=== PATIENT | male | born 1955 | race African-American/Black ===

== ENCOUNTER 2019-06-12 16:06 | Inpatient (IN) | payer BC, OTHER ==
[~2019-06-12 16:06] MED LIST: chlordiazePOXIDE HCL 25 MG CAPSULE PO SCH
--- NOTE | 2019-06-12 16:30 | PDOC ---
History of Present Illness - General Chief Complaint: Alcohol intoxication Stated Complaint: WEEKNESS Time Seen by Provider: 06/12/19 16:16 - History of Present Illness Initial Comments: Mr. Moreira is a 63 y/o male with PMH significant for gastric sleeve, prostate CA s/p prostatectomy, muscular dystrophy, ETOH abuse, sent in from [facility] today for weakness and alcohol withdrawals. Reports that he was sober for 2 years until the of his mother last week. Reports that he started drinking again this past week. Last drink was yesterday and he had 3-4 bottles of alcohol (likely vodka). He presented to [facility] today for ETOH intoxication and was sent to [facility] for detox. At [facility], he stated that he felt weak and unstable and was about to fall. He reports headache, dizziness, nausea, and vomiting. No chest pain or shortness of breath. No abdominal pain. Reports intermittent visual hallucinations of cartoon characters. Past History - Past Medical History Allergies/Adverse Reactions: Allergies Allergy/AdvReac Type Severity Reaction Status Date / Time shrimp Allergy Severe Swelling Verified 06/12/19 12:56 Home Medications: Ambulatory Orders NK [No Known Home Medication] 06/12/19 Review of Systems - Review of Systems Comments:: GENERAL/CONSTITUTIONAL: No fever or chills. Reports weakness. HEAD, EYES, EARS, NOSE AND THROAT: No change in vision. No change in hearing. No sore throat._ CARDIOVASCULAR: No chest pain or shortness of breath_ RESPIRATORY: Denies cough, hemoptysis_ GASTROINTESTINAL: Reports nausea and vomiting. No diarrhea or constipation._ GENITOURINARY: No dysuria, frequency, or change in urination._ MUSCULOSKELETAL: No joint or muscle swelling or pain. No neck or back pain._ SKIN: No rash. NEUROLOGIC: Reports headache. No vertigo, loss of consciousness. Reports bilateral upper extremity tremors. PSYCH: Reports visual hallucinations. ENDOCRINE: No increased thirst. No abnormal weight change_ HEMATOLOGIC/LYMPHATIC: No anemia, easy bleeding, or history of blood clots._ ALLERGIC/IMMUNOLOGIC: No hives or skin allergy._ *Physical Exam - Physical Exam GENERAL: Awake, alert, and oriented to person/time, in no acute distress_ HEAD: No signs of trauma, normocephalic, atraumatic _ EYES: PERRLA, EOMI, sclera anicteric, conjunctiva clear_ ENT: Hearing grossly normal, nares patent, oropharynx clear without exudates. No uvular deviation. Moist mucosa_ NECK: Normal ROM, supple, no lymphadenopathy, JVD, or masses_ LUNGS: No distress, speaks in full sentences, clear to auscultation bilaterally _ HEART: Regular rate and rhythm, normal S1 and S2, no murmurs appreciated, peripheral pulses normal and equal bilaterally._ ABDOMEN: Soft, nontender, normoactive bowel sounds. No guarding, no rebound. No masses_ EXTREMITIES: Normal inspection, Normal range of motion, no edema. No clubbing or cyanosis_ NEUROLOGICAL: Cranial nerves II through XII grossly intact. Normal speech. Unsteady gait. Bilateral upper extremity tremors. Cerebellar testing intact. Heel to ibrahim testing intact. Sensation intact and equal bilaterally. SKIN: Warm, Dry, normal turgor, no rashes or lesions noted_ ED Treatment Course - LABORATORY CBC & Chemistry Diagram: 06/12/19 17:20 06/12/19 17:20 Medical Decision Making - Medical Decision Making 06/12/19 16:29 63M presenting for weakness, frequent falls, ETOH abuse, ETOH withdrawal. -cbc, cmp, tsh -ua, utox -etoh level, acetaminophen level, salicylate level -ekg, trop, cxr -ct head -librium, ativan 06/12/19 16:43 EKG shows NSR, 65 bpm, no ST elevation/depression, QTc 463. 06/12/19 18:15 UA shows signs of UTI. -ucx -ceftriaxone 06/12/19 18:25 CXR shows no acute intra-thoracic pathology. 06/12/19 18:52 CT head shows no acute intra-cranial pathology, no hemorrhage, no mass effect. Labs reviewed. Laboratory Tests 06/12/19 06/12/19 06/12/19 17:20 17:20 17:20 WBC 6.5 RBC 4.56 Hgb 10.1 L Hct 31.4 L MCV 68.8 L MCH 22.1 L MCHC 32.1 RDW 18.1 H Plt Count 134 MPV 8.8 Absolute Neuts (auto) 4.5 Neutrophils % 68.7 Lymphocytes % 21.2 Monocytes % 9.5 Eosinophils % 0.1 Basophils % 0.5 Nucleated RBC % 0 PT with INR INR PTT (Actin FS) Sodium 133 L Potassium 4.2 Chloride 92 L Carbon Dioxide 32 Anion Gap 8 BUN 8.6 Creatinine 0.4 L Est GFR (CKD-EPI)AfAm 146.51 Est GFR (CKD-EPI)NonAf 126.41 Random Glucose 87 Calcium 8.7 Total Bilirubin 1.6 H AST 74 H ALT 56 Alkaline Phosphatase 94 Creatine Kinase 403 H Creatine Kinase Index 1.3 CK-MB (CK-2) 5.4 H Troponin I < 0.02 Total Protein 7.0 Albumin 3.1 L TSH 1.47 Urine Color Urine Appearance Urine pH Ur Specific [place] Urine Protein Urine Glucose (UA) Urine Ketones Urine Blood Urine Nitrite Urine Bilirubin Urine Urobilinogen Ur Leukocyte Esterase Urine WBC (Auto) Urine RBC (Auto) Urine Casts (Auto) U Epithel Cells (Auto) U Sm Round Cell (Auto) Salicylates < 2.0 L Opiates Screen Methadone Screen Acetaminophen --noresult-- Barbiturate Screen Phencyclidine Screen Ur Amphetamines Screen MDMA (Ecstasy) Screen Benzodiazepines Screen Cocaine Screen U Marijuana (THC) Screen Alcohol, Quantitative < 3 06/12/19 06/12/19 06/12/19 17:20 17:20 17:20 WBC RBC Hgb Hct MCV MCH MCHC RDW Plt Count MPV Absolute Neuts (auto) Neutrophils % Lymphocytes % Monocytes % Eosinophils % Basophils % Nucleated RBC % PT with INR 13.50 H INR 1.14 H PTT (Actin FS) 26.6 Sodium Potassium Chloride Carbon Dioxide Anion Gap BUN Creatinine Est GFR (CKD-EPI)AfAm Est GFR (CKD-EPI)NonAf Random Glucose Calcium Total Bilirubin AST ALT Alkaline Phosphatase Creatine Kinase Creatine Kinase Index CK-MB (CK-2) Troponin I Total Protein Albumin TSH Urine Color Dk yellow Urine Appearance Cloudy Urine pH >= 9.0 H Ur Specific [place] 1.023 Urine Protein 1+ H Urine Glucose (UA) Trace Urine Ketones Negative Urine Blood Negative Urine Nitrite Positive H Urine Bilirubin Negative Urine Urobilinogen 4.0 e.u/dl Ur Leukocyte Esterase 1+ H Urine WBC (Auto) 12 Urine RBC (Auto) 3 Urine Casts (Auto) 9 U Epithel Cells (Auto) 4.7 U Sm Round Cell (Auto) none Salicylates Opiates Screen Negative Methadone Screen Negative Acetaminophen Barbiturate Screen Negative Phencyclidine Screen Negative Ur Amphetamines Screen Negative MDMA (Ecstasy) Screen Negative Benzodiazepines Screen Negative Cocaine Screen Negative U Marijuana (THC) Screen Negative Alcohol, Quantitative 06/12/19 19:15 D/w Dr. Reilly who accepts the patient for admission. Discharge - Discharge Information Problems reviewed: Yes Clinical Impression/Diagnosis: Alcohol withdrawal Qualifiers: Complication of substance-induced condition: with perceptual disturbance Qualified Code(s): F10.232 - Alcohol dependence with withdrawal with perceptual disturbance Condition: Stable - Admission Yes - Follow up/Referral - Patient Discharge Instructions - Post Discharge Activity CIWA Score Nausea/Vomitin Muscle Tremors: 4-Moderate,w/Arms Extend Anxiety: 1-Mildly Anxious Agitation: 0-Normal Activity Paroxysmal Sweats: 1-Minimal Palms Moist Orientation: 3-Disoriented Date>2 days Tacttile Disturbances: 0-None Auditory Disturbances: 0-None Visual Disturbances: 4-Moderate Hallucinations Headache: 4-Moderately Severe CIWA-Ar Total Score: 20 - Admission Criteria OASAS Guidelines: Admission for Medically Managed Detox: Requires at least one of the followin. CIWA greater than 12 2. Seizures within the past 24 hours 3. Delirium tremens within the past 24 hours 4. Hallucinations within the past 24 hours 5. Acute intervention needed for co occurring medical disorder 6. Acute intervention needed for co occurring psychiatric disorder 7. Severe withdrawal that cannot be handled at a lower level of care (continued vomiting, continued diarrhea, abnormal vital signs) requiring intravenous medication and/or fluids 8. Patient presents the following: CIWA greater than 12 Admission Criteria Met: Admission criteria met
[2019-06-12] MEDS ORDERED: chlordiazePOXIDE HCL 25 MG CAPSULE PO ONE (16:44)
[2019-06-12] MEDS ORDERED: chlordiazePOXIDE HCL 25 MG CAPSULE ONE (17:33)
[2019-06-12] MEDS ORDERED: LORazepam 2 MG/ML SDV VIAL ONE (17:33)
[2019-06-12 17:39] LABS: BASO % 0.5 % (0-2.0); EOS % 0.1 % (0-4.5); HEMATOCRIT 31.4 % (35.4-49); HEMOGLOBIN 10.1 GM/dL (11.7-16.9); LYMPH % 21.2 % (8-40); MCH 22.1 pg (25.7-33.7); MCHC 32.1 g/dl (32.0-35.9); MEAN CELL VOLUME 68.8 fl (80-96); MEAN PLT VOLUME 8.8 fl (7.5-11.1); MONO % 9.5 % (3.8-10.2); NEUT % 68.7 % (42.8-82.8); PLATELET COUNT 134 K/MM3 (134-434); RBC 4.56 M/mm3 (4.00-5.60); RDW 18.1 % (11.9-15.9); WHITE BLOOD COUNT 6.5 K/mm3 (4.0-10.0)
[2019-06-12 17:41] LABS: EPI CELLS 4.7 /HPF (0-5/HPF); HYALINE CASTS 9 /lpf (0-8); PH,URINE >= 9.0 (5.0-8.0); URINE APPEARANCE CLOUDY; URINE BILIRUBIN NEGATIVE (NEGATIVE); URINE COLOR DK YELLOW; URINE GLUCOSE (UA) TRACE (NEGATIVE); URINE KETONE NEGATIVE (NEGATIVE); URINE LEUK ESTERASE 1+ (NEGATIVE); URINE NITRITE POSITIVE (NEGATIVE); URINE PROTEIN 1+ (NEGATIVE); URINE RBC 3 /hpf (0-4); URINE UROBILINOGEN 4.0 E.U/dl mg/dL (0.2-1.0); URINE WBC 12 /hpf (0-5)
[2019-06-12 17:52] LABS: INR 1.14 (0.83-1.09); PROTHROMBIN TIME (PATIENT) 13.5 SEC (9.7-13.0)
[2019-06-12 17:54] LABS: ACTIVATED PTT 26.6 SECONDS (25.2-36.5)
[2019-06-12 17:55] LABS: COCAINE, UR NEGATIVE ng/ml (CUTOFF=300); METHADONE, UR NEGATIVE ng/ml (CUTOFF=300); OPIATES, URI NEGATIVE ng/ml (CUTOFF=300); PHENCYCLIDINE,URINE NEGATIVE ng/ml (CUTOFF=25); URINE AMPHETAMINES NEGATIVE ng/ml (CUTOFF=500); URINE BARBITURATES NEGATIVE ng/ml (CUTOFF=200); URINE BENZODIAZEPINES NEGATIVE ng/ml (CUTOFF=200)
[2019-06-12] MEDS ORDERED: CEFTRIAXONE 1 GM in DEXTROSE 5%-WATER - 100 ML IVPB ONE (18:12)
[2019-06-12 18:18] LABS: ALBUMIN 3.1 g/dl (3.4-5.0); ALK PHOS 94 U/L (45-117); ANION GAP 8 MMOL/L (8-16); BILIRUBIN,TOTAL 1.6 mg/dL (0.2-1); BLOOD UREA NITROGEN 8.6 mg/dL (7-18); CALCIUM 8.7 mg/dL (8.5-10.1); CHLORIDE 92 mmol/L (98-107); CO2 32 mmol/L (21-32); CREATININE 0.4 mg/dL (0.55-1.3); GLUCOSE,RANDOM 87 mg/dL (74-106); POTASSIUM 4.2 mmol/L (3.5-5.1); SGOT/AST 74 U/L (15-37); SGPT/ALT 56 U/L (13-61); SODIUM 133 mmol/L (136-145)
[2019-06-12] MEDS ORDERED: SODIUM CHLORIDE 0.9% 500 ML INFUS.BAG IV ONE (18:33)
[2019-06-12] MEDS ORDERED: CEFTRIAXONE 1 GM/50 ML BAG ONE (18:48)
--- NOTE | 2019-06-12 19:48 | PDOC ---
Documentation entered by Racheal Bergman SCRIBE, acting as scribe for Betzaida Navarro MD. Betzaida Navarro MD: This documentation has been prepared by the [place]iaibe, Racheal Bergman SCRIBE, under my direction and personally reviewed by me in its entirety. I confirm that the documentation accurately reflects all work, treatment, procedures, and medical decision making performed by me. Attending Attestation - Resident Resident Name: Tae Francisco - ED Attending Attestation I have performed the following: I have examined & evaluated the patient, The case was reviewed & discussed with the resident, I agree w/resident's findings & plan, Exceptions are as noted - HPI HPI: 06/12/19 19:63-year-old male with a history of alcoholism is being sent from [facility] for generalized increasing weakness. He has muscular dystrophy and is having increasing difficulties with ADLs - Physicial Exam PE: 06/12/19 20:11 wnwd 63 yo male with c/o generalized weakness head ncat lungs cta bl cvs [id number] eyes crhistiano eomi abd nontender skin warm and dry neuro chronic weakness in upper extremities > lower extremities,conversant - Medical Decision Making 06/12/19 20:14 63-year-old male brought in by ambulance from [facility] detox for complaint of generalized weakness, difficulty ambulating Patient has a history of muscular dystrophy CAT scan of the head - did not show any acute cranial pathology, no infarct cbc wnl chemistries show tbili=1,6 and AST elevated but otherwise unremarkable UA positive for UTI pt started on antibiotics and has been given ativan and librium for withdrawal symptoms
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
[2019-06-12] MEDS: SODIUM CHLORIDE 1,000 ML IV SCH (20:46)
[2019-06-12] MEDS ORDERED: chlordiazePOXIDE 5 MG CAPSULE PO PRN (22:14)
[2019-06-12] MEDS ORDERED: FOLIC ACID INJECTION - 1 MG, THIAMINE HCL 100 MG, MULTIVIT INJECTION ADULT 10 ML in SOD... IVPB ONE (22:18)
[2019-06-12] MEDS ORDERED: HEPARIN NA (PORCINE) 5,000 UNITS/ML 1ML VIAL ONE (22:35)
[2019-06-12] MEDS: HEPARIN NA (PORCINE) 5,000 UNITS/ML 1ML VIAL SQ SCH (22:39)
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
[2019-06-13] MEDS ORDERED: chlordiazePOXIDE HCL 25 MG CAPSULE PO SCH (05:00)
[2019-06-13] MEDS ORDERED: chlordiazePOXIDE 5 MG CAPSULE PO SCH (05:00)
[2019-06-13] MEDS ORDERED: chlordiazePOXIDE HCL 10 MG CAPSULE ONE ×3 (05:27→20:30)
[2019-06-13] MEDS ORDERED: chlordiazePOXIDE 5 MG CAPSULE ONE ×3 (05:28→20:30)
[2019-06-13] MEDS: CHLORDIAZEPOXIDE 20 MG, CHLORDIAZEPOXIDE 5 MG PO SCH ×3 (05:32→21:58)
[2019-06-13] MEDS ORDERED: HEPARIN NA (PORCINE) 5,000 UNITS/ML 1ML VIAL ONE (06:05)
[2019-06-13] MEDS: HEPARIN NA (PORCINE) 5,000 UNITS/ML 1ML VIAL SQ SCH ×3 (06:07→21:59)
[2019-06-13 06:21] LABS: HEMATOCRIT 31.1 % (35.4-49); HEMOGLOBIN 10.1 GM/dL (11.7-16.9); MCH 22.3 pg (25.7-33.7); MCHC 32.4 g/dl (32.0-35.9); MEAN CELL VOLUME 68.8 fl (80-96); MEAN PLT VOLUME 8.7 fl (7.5-11.1); PLATELET COUNT 136 K/MM3 (134-434); RBC 4.52 M/mm3 (4.00-5.60); WHITE BLOOD COUNT 6.4 K/mm3 (4.0-10.0)
[2019-06-13 06:47] LABS: BLOOD UREA NITROGEN 6.4 mg/dL (7-18); CALCIUM 8.4 mg/dL (8.5-10.1); CREATININE 0.4 mg/dL (0.55-1.3); MAGNESIUM 1.4 mg/dL (1.8-2.4); PHOSPHOROUS 2.5 mg/dL (2.5-4.9); POTASSIUM 3.5 mmol/L (3.5-5.1)
[2019-06-13] MEDS ORDERED: MAGNESIUM OXIDE 400 MG TABLET (FP) PO ONE (07:09)
[2019-06-13 07:40] LABS: ALBUMIN 2.8 g/dl (3.4-5.0); ALK PHOS 79 U/L (45-117); BILIRUBIN,DIRECT 0.5 mg/dL (0.0-0.2); BILIRUBIN,TOTAL 1.4 mg/dL (0.2-1); GAMMA GLUTAMYL TRANSPEPTIDASE 49 U/L (5-85); SGOT/AST 60 U/L (15-37); SGPT/ALT 47 U/L (13-61); TOT PROT 6.1 g/dl (6.4-8.2)
[2019-06-13] MEDS ORDERED: MAGNESIUM SULF 50% (8.12 MEQ/2 ML-1 GM VIAL) IVPB ONE (09:31)
--- NOTE | 2019-06-13 10:36 | EKG ---
Test Reason : Blood Pressure : / mmHG Vent. Rate : 066 BPM Atrial Rate : 066 BPM P-R Int : 148 ms QRS Dur : 084 ms QT Int : 440 ms P-R-T Axes : 071 065 049 degrees QTc Int : 461 ms NORMAL SINUS RHYTHM NORMAL ECG WHEN COMPARED WITH ECG OF 12-JUN-2019 16:32, NO SIGNIFICANT CHANGE WAS FOUND Confirmed by HERACLIO MENDOZA MD ([id number]) on 06/13/2019 10:35:56 AM Referred By: Confirmed By:HERACLIO MENDOZA MD
[2019-06-13] MEDS ORDERED: MAGNESIUM 1GM/D5W - 2 GM/200 ML IVPB IVPB ONE (10:37)
[2019-06-13] MEDS: FOLIC ACID 1 MG TABLET (FP) PO SCH (10:48)
[2019-06-13] MEDS: THIAMINE HCL 100 MG TABLET (FP) PO SCH (10:48)
[2019-06-13] MEDS: CEPHALEXIN MONOHYDRATE 500 MG CAPSULE (UD) PO SCH ×2 (13:58→21:59)
[2019-06-13] MEDS: SODIUM CHLORIDE 1,000 ML IV SCH ×2 (14:12→21:57)
--- NOTE | 2019-06-13 14:35 | PN ---
Teaching Attending Note Name of Resident: Aroldo Lucia ATTENDING PHYSICIAN STATEMENT I saw and evaluated the patient. I reviewed the resident's note and discussed the case with the resident. I agree with the resident's findings and plan as documented. SUBJECTIVE: Feeling okay - no specific complaints. No further hallucinations. No seizure activity. OBJECTIVE: Afebrile, Hemodynamically Stable. Mild tongue fasciculation. No gross tremor currently. Last Vital Signs Temp Pulse Resp BP Pulse Ox 98.7 F 85 18 122/78 96 06/13/19 10:25 06/13/19 04:52 06/13/19 04:52 06/13/19 04:52 06/13/19 04:52 HEENT - Atraumatic, Normocephalic. Heart - S1, S2, RRR Lungs - clear to auscultation Abdomen - soft, non-tender. Bowel Sounds normal. Extremities - Trace edema, No calf tenderness. LE venous stasis skin changes. Neuro -AAO x 3. Generalized weakness, no focal signs. Laboratory Results - last 24 hr 06/12/19 06/12/19 06/12/19 17:20 17:20 17:20 WBC 6.5 RBC 4.56 Hgb 10.1 L Hct 31.4 L MCV 68.8 L MCH 22.1 L MCHC 32.1 RDW 18.1 H Plt Count 134 MPV 8.8 Absolute Neuts (auto) 4.5 Neutrophils % 68.7 Lymphocytes % 21.2 Monocytes % 9.5 Eosinophils % 0.1 Basophils % 0.5 Nucleated RBC % 0 Retic Count PT with INR INR PTT (Actin FS) Sodium 133 L Potassium 4.2 Chloride 92 L Carbon Dioxide 32 Anion Gap 8 BUN 8.6 Creatinine 0.4 L Est GFR (CKD-EPI)AfAm 146.51 Est GFR (CKD-EPI)NonAf 126.41 Random Glucose 87 Calcium 8.7 Phosphorus Magnesium Iron TIBC Iron Saturation Unsaturated IBC Ferritin Total Bilirubin 1.6 H Direct Bilirubin GGT AST 74 H ALT 56 Alkaline Phosphatase 94 Creatine Kinase 403 H Creatine Kinase Index 1.3 CK-MB (CK-2) 5.4 H Troponin I < 0.02 Total Protein 7.0 Albumin 3.1 L TSH 1.47 Urine Color Urine Appearance Urine pH Ur Specific [place] Urine Protein Urine Glucose (UA) Urine Ketones Urine Blood Urine Nitrite Urine Bilirubin Urine Urobilinogen Ur Leukocyte Esterase Urine WBC (Auto) Urine RBC (Auto) Urine Casts (Auto) U Pathogenic Cast Auto U Epithel Cells (Auto) U Sm Round Cell (Auto) Urine Bacteria (Auto) Salicylates < 2.0 L Opiates Screen Methadone Screen Acetaminophen --noresult-- Barbiturate Screen Phencyclidine Screen Ur Amphetamines Screen MDMA (Ecstasy) Screen Benzodiazepines Screen Cocaine Screen U Marijuana (THC) Screen Alcohol, Quantitative < 3 06/12/19 06/12/19 06/12/19 17:20 17:20 17:20 WBC RBC Hgb Hct MCV MCH MCHC RDW Plt Count MPV Absolute Neuts (auto) Neutrophils % Lymphocytes % Monocytes % Eosinophils % Basophils % Nucleated RBC % Retic Count PT with INR 13.50 H INR 1.14 H PTT (Actin FS) 26.6 Sodium Potassium Chloride Carbon Dioxide Anion Gap BUN Creatinine Est GFR (CKD-EPI)AfAm Est GFR (CKD-EPI)NonAf Random Glucose Calcium Phosphorus Magnesium Iron TIBC Iron Saturation Unsaturated IBC Ferritin Total Bilirubin Direct Bilirubin GGT AST ALT Alkaline Phosphatase Creatine Kinase Creatine Kinase Index CK-MB (CK-2) Troponin I Total Protein Albumin TSH Urine Color Dk yellow Urine Appearance Cloudy Urine pH >= 9.0 H Ur Specific [place] 1.023 Urine Protein 1+ H Urine Glucose (UA) Trace Urine Ketones Negative Urine Blood Negative Urine Nitrite Positive H Urine Bilirubin Negative Urine Urobilinogen 4.0 e.u/dl Ur Leukocyte Esterase 1+ H Urine WBC (Auto) 12 Urine RBC (Auto) 3 Urine Casts (Auto) 9 U Pathogenic Cast Auto None U Epithel Cells (Auto) 4.7 U Sm Round Cell (Auto) none Urine Bacteria (Auto) few Salicylates Opiates Screen Negative Methadone Screen Negative Acetaminophen Barbiturate Screen Negative Phencyclidine Screen Negative Ur Amphetamines Screen Negative MDMA (Ecstasy) Screen Negative Benzodiazepines Screen Negative Cocaine Screen Negative U Marijuana (THC) Screen Negative Alcohol, Quantitative 06/13/19 06/13/19 06/13/19 05:30 05:30 05:30 WBC 6.4 RBC 4.52 Hgb 10.1 L Hct 31.1 L MCV 68.8 L MCH 22.3 L MCHC 32.4 RDW 18.0 H Plt Count 136 MPV 8.7 Absolute Neuts (auto) Neutrophils % Lymphocytes % Monocytes % Eosinophils % Basophils % Nucleated RBC % Retic Count 2.73 H PT with INR INR PTT (Actin FS) Sodium 137 Potassium 3.5 Chloride 99 Carbon Dioxide 31 Anion Gap 7 L BUN 6.4 L Creatinine 0.4 L Est GFR (CKD-EPI)AfAm 146.51 Est GFR (CKD-EPI)NonAf 126.41 Random Glucose 87 Calcium 8.4 L Phosphorus 2.5 Magnesium 1.4 L Iron 149 TIBC Iron Saturation Unsaturated IBC Ferritin Total Bilirubin Direct Bilirubin GGT AST ALT Alkaline Phosphatase Creatine Kinase Creatine Kinase Index CK-MB (CK-2) Troponin I Total Protein Albumin TSH Urine Color Urine Appearance Urine pH Ur Specific [place] Urine Protein Urine Glucose (UA) Urine Ketones Urine Blood Urine Nitrite Urine Bilirubin Urine Urobilinogen Ur Leukocyte Esterase Urine WBC (Auto) Urine RBC (Auto) Urine Casts (Auto) U Pathogenic Cast Auto U Epithel Cells (Auto) U Sm Round Cell (Auto) Urine Bacteria (Auto) Salicylates Opiates Screen Methadone Screen Acetaminophen Barbiturate Screen Phencyclidine Screen Ur Amphetamines Screen MDMA (Ecstasy) Screen Benzodiazepines Screen Cocaine Screen U Marijuana (THC) Screen Alcohol, Quantitative 06/13/19 06/13/19 05:30 05:30 WBC RBC Hgb Hct MCV MCH MCHC RDW Plt Count MPV Absolute Neuts (auto) Neutrophils % Lymphocytes % Monocytes % Eosinophils % Basophils % Nucleated RBC % Retic Count PT with INR INR PTT (Actin FS) Sodium Potassium Chloride Carbon Dioxide Anion Gap BUN Creatinine Est GFR (CKD-EPI)AfAm Est GFR (CKD-EPI)NonAf Random Glucose Calcium Phosphorus Magnesium Iron 145 TIBC 155 L Iron Saturation 93 H Unsaturated IBC 10 L Ferritin 361.5 Total Bilirubin 1.4 H Direct Bilirubin 0.5 H GGT 49 AST 60 H ALT 47 Alkaline Phosphatase 79 Creatine Kinase 277 Creatine Kinase Index 1.6 CK-MB (CK-2) 4.7 H Troponin I < 0.02 Total Protein 6.1 L Albumin 2.8 L TSH Urine Color Urine Appearance Urine pH Ur Specific [place] Urine Protein Urine Glucose (UA) Urine Ketones Urine Blood Urine Nitrite Urine Bilirubin Urine Urobilinogen Ur Leukocyte Esterase Urine WBC (Auto) Urine RBC (Auto) Urine Casts (Auto) U Pathogenic Cast Auto U Epithel Cells (Auto) U Sm Round Cell (Auto) Urine Bacteria (Auto) Salicylates Opiates Screen Methadone Screen Acetaminophen Barbiturate Screen Phencyclidine Screen Ur Amphetamines Screen MDMA (Ecstasy) Screen Benzodiazepines Screen Cocaine Screen U Marijuana (THC) Screen Alcohol, Quantitative Current Medications Generic Name Dose Route Start Last Admin Trade Name Freq PRN Reason Stop Dose Admin Cephalexin HCl 500 mg 06/13/19 12:45 06/13/19 13:58 Keflex - PO 500 mg BID EDWARD Administration Chlordiazepoxide HCl 10 mg 06/14/19 00:00 Librium - PO 06/14/19 23:59 Q12H PRN Signs/symptoms of Withdrawal Chlordiazepoxide HCl 10 mg 06/12/19 22:14 Librium - PO 06/13/19 23:59 Q8H PRN Signs/symptoms of Withdrawal Chlordiazepoxide HCl 10 mg 06/15/19 05:00 Librium - PO 06/15/19 21:01 Q8H EDWARD Chlordiazepoxide HCl 10 mg 06/16/19 05:00 Librium - PO 06/16/19 05:01 ONCE ONE Chlordiazepoxide HCl 15 mg 06/14/19 05:00 Librium - PO 06/14/19 21:01 Q8H EDWARD Chlordiazepoxide HCl 20 mg/ 25 mg 06/13/19 05:00 06/13/19 13:57 Chlordiazepoxide HCl 5 mg PO 06/13/19 21:01 25 mg Q8H EDWARD Administration Folic Acid 1 mg 06/13/19 10:00 06/13/19 10:48 Folic Acid - PO 1 mg DAILY EDWARD Administration Heparin Sodium (Porcine) 5,000 unit 06/12/19 22:00 06/13/19 13:58 Heparin - SQ 5,000 unit TID EDWARD Administration Sodium Chloride 1,000 mls @ 125 mls/hr 06/12/19 20:30 06/13/19 14:12 Normal Saline - IV 125 mls/hr ASDIR EDWARD Administration Thiamine HCl 100 mg 06/13/19 10:00 06/13/19 10:48 Vitamin B1 - PO 100 mg DAILY EDWARD Administration Discharge Medications Medication Instructions Recorded Cephalexin [Keflex] Thiamine 100mg daily Folic Acid 1mg daily MVI 1 tab daily. 500 mg PO BID #8 capsule 06/13/19 ASSESSMENT AND PLAN: 63 yea rold male with history of prostate ca s/p prostatectomy, muscular dystrophy (primarily affecting Bilateral UEs), Alcohol Abuse sent in from [facility] for Alcohol withdrawal hallucinations and unsteady gait/falls. CT Head - no acute intracranial findings. 1. Acute alcohol withdrawal Withdrawal symptoms improving, no further hallucinations. MUKUNDWA 3 this AM Librium as per CIWA received Banana Bag - now on daily thiamine and folic acid supplements. 2. Hypomagnesemia will replete. 3. Muscular dystrophy - Needs ongoing PT 4. Microcytic Anemia - normal Iron/Ferritin studies, ? underlying Hemoglobinopathy (would expect to find Macrocytposis in setting of Alcohol excess) - for out-patient referral to Hematology. 5. Possible UTI - UA positive. Urine Cx pending. Prior Hx prostate Ca and Surgery - will cover with Keflex. Urology out-patient appt as well. 6. Mild alcoholic Hepatitis - abdomen non-tender. Mild elevation in Too/AST. Abdo US shows cholestasis without cholecystitis, fatty liver. Medically stable for transfer to [facility]. Case discussed with Dr. Avery who has accepted the patient for transfer back to .
[2019-06-13] MEDS ORDERED: ONDANSETRON 4 MG/2 ML VIAL IVPUSH ONE (14:39)
--- NOTE | 2019-06-13 15:10 | CONSULT ---
Consult Detox [facility] Reason for Current Admission/Consult: Alcoholism Referred by:: Aroldo Lucia - History History of Present Illness: He was sent to [facility] yesterday due to his multiple medical problem Muscular Dystrophy with severe muscle weakness globally. Patient's alcohol breathalyzer was zero. 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 Also Patient would be a high fall risk. CIWA Score - CIWA Score Nausea/Vomitin Muscle Tremors: 4-Moderate,w/Arms Extend Anxiety: 1-Mildly Anxious Agitation: 0-Normal Activity Paroxysmal Sweats: 1-Minimal Palms Moist Orientation: 3-Disoriented Date>2 days Tacttile Disturbances: 0-None Auditory Disturbances: 0-None Visual Disturbances: 4-Moderate Hallucinations Headache: 4-Moderately Severe CIWA-Ar Total Score: 20 Assessment Plan - Plan Plan: 1. Alcohol Dependence with withdrawals. Unlikely that we would be able to provide acute care for all his needs during detox. He needs a higher level of care during detox. Recommend that he remain in hospital where his ADL's could be adequately provided for and the Detox protocol can be carried through while he is hospitalized. In addition, reassess the CIWA to determine if he really needs an extended course of detox or not. Dr. Avery - Medication Detox Regimen/Protocol: Not Applicable (Use Ativan Detox protocol if necessary)
--- NOTE | 2019-06-13 17:45 | PN ---
Physical Exam: SUBJECTIVE: Patient seen and examined at the bedside. Patient appearing nervous and tremorous. States he wants to get clean off alcohol as he had a long period of sobriety prior to recent relapse. States he has a headache, tremors, anxiety , nausea and vomiting. Denies cp, sob, abd pain, constipation, diarrhea. OBJECTIVE: Vital Signs Period Temp Pulse Resp BP Sys/Solis Pulse Ox Last 24 Hr 98.7 F-98.8 F 68-86 18-18 108-150/70-88 96-99 GENERAL: The patient is awake, alert, and fully oriented, in moderate acute distress. Tremulous HEAD: Normal with no signs of trauma. EYES: PERRL, extraocular movements intact, mild scleral icterus, conjunctiva clear. ENT: Oropharynx clear without exudates, moist mucous membranes. NECK: Trachea midline, full range of motion, supple. LUNGS: Breath sounds equal, clear to auscultation bilaterally, no wheezes, no crackles, no accessory muscle use. HEART: Regular rate and rhythm, S1, S2 without murmur, rub. ABDOMEN: Soft, nontender, nondistended, normoactive bowel sounds, no guarding, no rebound, no masses. EXTREMITIES: 2+ pulses, warm, well-perfused, no edema. NEUROLOGICAL: Cranial nerves II through XII grossly intact. 3/5 muscle strength upper extremities bilaterally. 4/5 muscle strength lower extremities bilaterally. Sensation intact throughout to gross touch. PSYCH: Normal mood, normal affect. SKIN: Warm, dry, normal turgor, no rashes or lesions noted. Laboratory Results - last 24 hr 06/12/19 06/12/19 06/12/19 17:20 17:20 17:20 WBC 6.5 RBC 4.56 Hgb 10.1 L Hct 31.4 L MCV 68.8 L MCH 22.1 L MCHC 32.1 RDW 18.1 H Plt Count 134 MPV 8.8 Absolute Neuts (auto) 4.5 Neutrophils % 68.7 Lymphocytes % 21.2 Monocytes % 9.5 Eosinophils % 0.1 Basophils % 0.5 Nucleated RBC % 0 Retic Count PT with INR INR PTT (Actin FS) Sodium 133 L Potassium 4.2 Chloride 92 L Carbon Dioxide 32 Anion Gap 8 BUN 8.6 Creatinine 0.4 L Est GFR (CKD-EPI)AfAm 146.51 Est GFR (CKD-EPI)NonAf 126.41 Random Glucose 87 Calcium 8.7 Phosphorus Magnesium Iron TIBC Iron Saturation Unsaturated IBC Ferritin Total Bilirubin 1.6 H Direct Bilirubin GGT AST 74 H ALT 56 Alkaline Phosphatase 94 Creatine Kinase 403 H Creatine Kinase Index 1.3 CK-MB (CK-2) 5.4 H Troponin I < 0.02 Total Protein 7.0 Albumin 3.1 L TSH 1.47 Urine Color Urine Appearance Urine pH Ur Specific [place] Urine Protein Urine Glucose (UA) Urine Ketones Urine Blood Urine Nitrite Urine Bilirubin Urine Urobilinogen Ur Leukocyte Esterase Urine WBC (Auto) Urine RBC (Auto) Urine Casts (Auto) U Pathogenic Cast Auto U Epithel Cells (Auto) U Sm Round Cell (Auto) Urine Bacteria (Auto) Salicylates < 2.0 L Opiates Screen Methadone Screen Acetaminophen --noresult-- Barbiturate Screen Phencyclidine Screen Ur Amphetamines Screen MDMA (Ecstasy) Screen Benzodiazepines Screen Cocaine Screen U Marijuana (THC) Screen Alcohol, Quantitative < 3 06/12/19 06/12/19 06/12/19 17:20 17:20 17:20 WBC RBC Hgb Hct MCV MCH MCHC RDW Plt Count MPV Absolute Neuts (auto) Neutrophils % Lymphocytes % Monocytes % Eosinophils % Basophils % Nucleated RBC % Retic Count PT with INR 13.50 H INR 1.14 H PTT (Actin FS) 26.6 Sodium Potassium Chloride Carbon Dioxide Anion Gap BUN Creatinine Est GFR (CKD-EPI)AfAm Est GFR (CKD-EPI)NonAf Random Glucose Calcium Phosphorus Magnesium Iron TIBC Iron Saturation Unsaturated IBC Ferritin Total Bilirubin Direct Bilirubin GGT AST ALT Alkaline Phosphatase Creatine Kinase Creatine Kinase Index CK-MB (CK-2) Troponin I Total Protein Albumin TSH Urine Color Dk yellow Urine Appearance Cloudy Urine pH >= 9.0 H Ur Specific [place] 1.023 Urine Protein 1+ H Urine Glucose (UA) Trace Urine Ketones Negative Urine Blood Negative Urine Nitrite Positive H Urine Bilirubin Negative Urine Urobilinogen 4.0 e.u/dl Ur Leukocyte Esterase 1+ H Urine WBC (Auto) 12 Urine RBC (Auto) 3 Urine Casts (Auto) 9 U Pathogenic Cast Auto None U Epithel Cells (Auto) 4.7 U Sm Round Cell (Auto) none Urine Bacteria (Auto) few Salicylates Opiates Screen Negative Methadone Screen Negative Acetaminophen Barbiturate Screen Negative Phencyclidine Screen Negative Ur Amphetamines Screen Negative MDMA (Ecstasy) Screen Negative Benzodiazepines Screen Negative Cocaine Screen Negative U Marijuana (THC) Screen Negative Alcohol, Quantitative 06/13/19 06/13/19 06/13/19 05:30 05:30 05:30 WBC 6.4 RBC 4.52 Hgb 10.1 L Hct 31.1 L MCV 68.8 L MCH 22.3 L MCHC 32.4 RDW 18.0 H Plt Count 136 MPV 8.7 Absolute Neuts (auto) Neutrophils % Lymphocytes % Monocytes % Eosinophils % Basophils % Nucleated RBC % Retic Count 2.73 H PT with INR INR PTT (Actin FS) Sodium 137 Potassium 3.5 Chloride 99 Carbon Dioxide 31 Anion Gap 7 L BUN 6.4 L Creatinine 0.4 L Est GFR (CKD-EPI)AfAm 146.51 Est GFR (CKD-EPI)NonAf 126.41 Random Glucose 87 Calcium 8.4 L Phosphorus 2.5 Magnesium 1.4 L Iron 149 TIBC Iron Saturation Unsaturated IBC Ferritin Total Bilirubin Direct Bilirubin GGT AST ALT Alkaline Phosphatase Creatine Kinase Creatine Kinase Index CK-MB (CK-2) Troponin I Total Protein Albumin TSH Urine Color Urine Appearance Urine pH Ur Specific [place] Urine Protein Urine Glucose (UA) Urine Ketones Urine Blood Urine Nitrite Urine Bilirubin Urine Urobilinogen Ur Leukocyte Esterase Urine WBC (Auto) Urine RBC (Auto) Urine Casts (Auto) U Pathogenic Cast Auto U Epithel Cells (Auto) U Sm Round Cell (Auto) Urine Bacteria (Auto) Salicylates Opiates Screen Methadone Screen Acetaminophen Barbiturate Screen Phencyclidine Screen Ur Amphetamines Screen MDMA (Ecstasy) Screen Benzodiazepines Screen Cocaine Screen U Marijuana (THC) Screen Alcohol, Quantitative 06/13/19 06/13/19 05:30 05:30 WBC RBC Hgb Hct MCV MCH MCHC RDW Plt Count MPV Absolute Neuts (auto) Neutrophils % Lymphocytes % Monocytes % Eosinophils % Basophils % Nucleated RBC % Retic Count PT with INR INR PTT (Actin FS) Sodium Potassium Chloride Carbon Dioxide Anion Gap BUN Creatinine Est GFR (CKD-EPI)AfAm Est GFR (CKD-EPI)NonAf Random Glucose Calcium Phosphorus Magnesium Iron 145 TIBC 155 L Iron Saturation 93 H Unsaturated IBC 10 L Ferritin 361.5 Total Bilirubin 1.4 H Direct Bilirubin 0.5 H GGT 49 AST 60 H ALT 47 Alkaline Phosphatase 79 Creatine Kinase 277 Creatine Kinase Index 1.6 CK-MB (CK-2) 4.7 H Troponin I < 0.02 Total Protein 6.1 L Albumin 2.8 L TSH Urine Color Urine Appearance Urine pH Ur Specific [place] Urine Protein Urine Glucose (UA) Urine Ketones Urine Blood Urine Nitrite Urine Bilirubin Urine Urobilinogen Ur Leukocyte Esterase Urine WBC (Auto) Urine RBC (Auto) Urine Casts (Auto) U Pathogenic Cast Auto U Epithel Cells (Auto) U Sm Round Cell (Auto) Urine Bacteria (Auto) Salicylates Opiates Screen Methadone Screen Acetaminophen Barbiturate Screen Phencyclidine Screen Ur Amphetamines Screen MDMA (Ecstasy) Screen Benzodiazepines Screen Cocaine Screen U Marijuana (THC) Screen Alcohol, Quantitative Active Medications Generic Name Dose Route Start Last Admin Trade Name Freq PRN Reason Stop Dose Admin Cephalexin HCl 500 mg 06/13/19 12:45 06/13/19 13:58 Keflex - PO 500 mg BID EDWARD Administration Chlordiazepoxide HCl 10 mg 06/14/19 00:00 Librium - PO 06/14/19 23:59 Q12H PRN Signs/symptoms of Withdrawal Chlordiazepoxide HCl 10 mg 06/12/19 22:14 Librium - PO 06/13/19 23:59 Q8H PRN Signs/symptoms of Withdrawal Chlordiazepoxide HCl 10 mg 06/15/19 05:00 Librium - PO 06/15/19 21:01 Q8H EDWARD Chlordiazepoxide HCl 10 mg 06/16/19 05:00 Librium - PO 06/16/19 05:01 ONCE ONE Chlordiazepoxide HCl 15 mg 06/14/19 05:00 Librium - PO 06/14/19 21:01 Q8H EDWARD Chlordiazepoxide HCl 20 mg/ 25 mg 06/13/19 05:00 06/13/19 13:57 Chlordiazepoxide HCl 5 mg PO 06/13/19 21:01 25 mg Q8H EDWARD Administration Folic Acid 1 mg 06/13/19 10:00 06/13/19 10:48 Folic Acid - PO 1 mg DAILY EDWARD Administration Heparin Sodium (Porcine) 5,000 unit 06/12/19 22:00 06/13/19 13:58 Heparin - SQ 5,000 unit TID EDWARD Administration Sodium Chloride 1,000 mls @ 125 mls/hr 06/12/19 20:30 06/13/19 14:12 Normal Saline - IV 125 mls/hr ASDIR EDWARD Administration Thiamine HCl 100 mg 06/13/19 10:00 06/13/19 10:48 Vitamin B1 - PO 100 mg DAILY EDWARD Administration ASSESSMENT/PLAN: Freddy Moreira is a 63 year old male with a past medical history of prostate CA s/p prostatectomy, muscular dystrophy (primarily affecting UE BL), and etoh abuse present c/o etoh withdrawal symptoms. Alcohol Withdrawal - CIWA 10 - Banana bag given - continue thiamine and folate - Librium detox protocol while admitted at [facility] - Bedrest and fall precautions - TSH 1.47 - negative for alcohol in Utox - Addiction medicine consulted Anemia - high reticulocyte count indicating destructive process - iron studies normal - will have outpatient workup for possible hemoglobinopathy UTI - UA positive for nitrites and leukesterase - cephalexin 500mg bid - Ucx pending - will need to follow up with urology outpatient due to hx of prostatectomy Transaminitis hyper bilirubinemia and elevated AST, improving - RUQ US showing fatty liver disease, cholelithasis without cholecystitis Muscular dystrophy - Physical therapy evaluation noted that patient will likely benefit from assistive device FEN - NS at 125cc/hr - Continue to monitor electrolytes and replete as necessary. hypomagnesemia noted and repleted - Clear liquid diet DVT prophylaxis - Heparin 5000 units subq tid Disposition - continue to monitor on med/surg Visit type - Emergency Visit Emergency Visit: Yes ED Registration Date: 06/12/19 Care time: The patient presented to the Emergency Department on the above date and was hospitalized for further evaluation of their emergent condition. - New Patient This patient is new to me today: Yes Date on this admission: 06/13/19 - Critical Care Critical Care patient: No
[2019-06-13 18:15] VITALS: BMI 23.6
[2019-06-14] MEDS ORDERED: chlordiazePOXIDE 5 MG CAPSULE PO PRN
[2019-06-14] MEDS ORDERED: chlordiazePOXIDE 5 MG CAPSULE PO SCH (05:00)
[2019-06-14] MEDS: HEPARIN NA (PORCINE) 5,000 UNITS/ML 1ML VIAL SQ SCH ×3 (05:11→21:56)
[2019-06-14] MEDS: SODIUM CHLORIDE 1,000 ML IV SCH ×2 (06:18→12:09)
[2019-06-14 08:32] LABS: HEMOGLOBIN 10.5 GM/dL (11.7-16.9); MCH 22.5 pg (25.7-33.7); MCHC 32.7 g/dl (32.0-35.9); MEAN CELL VOLUME 68.9 fl (80-96); MEAN PLT VOLUME 8.5 fl (7.5-11.1); PLATELET COUNT 160 K/MM3 (134-434); RBC 4.65 M/mm3 (4.00-5.60); WHITE BLOOD COUNT 5.6 K/mm3 (4.0-10.0)
[2019-06-14 08:56] LABS: ALBUMIN 2.7 g/dl (3.4-5.0); BILIRUBIN,TOTAL 1.1 mg/dL (0.2-1); BLOOD UREA NITROGEN 4.3 mg/dL (7-18); CALCIUM 8.7 mg/dL (8.5-10.1); CREATININE 0.4 mg/dL (0.55-1.3); POTASSIUM 3.4 mmol/L (3.5-5.1); TOT PROT 6.2 g/dl (6.4-8.2)
--- NOTE | 2019-06-14 09:25 | EKG ---
Test Reason : Blood Pressure : / mmHG Vent. Rate : 065 BPM Atrial Rate : 065 BPM P-R Int : 152 ms QRS Dur : 082 ms QT Int : 446 ms P-R-T Axes : 080 077 064 degrees QTc Int : 463 ms NORMAL SINUS RHYTHM POSSIBLE LEFT ATRIAL ENLARGEMENT BORDERLINE ECG NO PREVIOUS ECGS AVAILABLE Confirmed by MD Nanci, Navdeep ([id number]) on 06/14/2019 9:24:32 AM Referred By: Confirmed By:Navdeep Christine MD
[2019-06-14] MEDS: THIAMINE HCL 100 MG TABLET (FP) PO SCH (10:08)
[2019-06-14] MEDS: CEPHALEXIN MONOHYDRATE 500 MG CAPSULE (UD) PO SCH ×2 (10:08→21:56)
[2019-06-14] MEDS: FOLIC ACID 1 MG TABLET (FP) PO SCH (10:08)
[2019-06-14] MEDS ORDERED: POTASSIUM CHLORIDE TABS 20 MEQ TABLET.ER (FP) PO ONE (11:07)
[2019-06-14] MEDS ORDERED: LORazepam 0.5 MG TABLET PO PRN (13:00)
--- NOTE | 2019-06-14 14:20 | PN ---
Physical Exam: SUBJECTIVE: Patient seen and examined at the bedside. Patient states that he is doing well and wants a full diet. States that he continues to have some tremors. Denies nausea, vomiting, hallucinations, numbness, parasthesias, chest pain, shortness of breath, abdominal pain. OBJECTIVE: Vital Signs Period Temp Pulse Resp BP Sys/Solis Pulse Ox Last 24 Hr 98.5 F-99.4 F 66-93 18-18 118-141/70-78 96-97 GENERAL: The patient is awake, alert, and fully oriented, in moderate acute distress. Tremulous HEAD: Normal with no signs of trauma. EYES: PERRL, extraocular movements intact, mild scleral icterus, conjunctiva clear. ENT: Oropharynx clear without exudates, moist mucous membranes. NECK: Trachea midline, full range of motion, supple. LUNGS: Breath sounds equal, clear to auscultation bilaterally, no wheezes, no crackles, no accessory muscle use. HEART: Regular rate and rhythm, S1, S2 without murmur, rub. ABDOMEN: Soft, nontender, nondistended, normoactive bowel sounds, no guarding, no rebound, no masses. EXTREMITIES: 2+ pulses, warm, well-perfused, no edema. NEUROLOGICAL: Cranial nerves II through XII grossly intact. 3/5 muscle strength upper extremities bilaterally. 4/5 muscle strength lower extremities bilaterally. Sensation intact throughout to gross touch. PSYCH: Normal mood, normal affect. SKIN: Warm, dry, normal turgor, no rashes or lesions noted. Laboratory Results - last 24 hr 06/14/19 06/14/19 07:45 07:45 WBC 5.6 RBC 4.65 Hgb 10.5 L Hct 32.0 L MCV 68.9 L MCH 22.5 L MCHC 32.7 RDW 19.0 H Plt Count 160 MPV 8.5 Sodium 139 Potassium 3.4 L Chloride 101 Carbon Dioxide 32 Anion Gap 6 L BUN 4.3 L Creatinine 0.4 L Est GFR (CKD-EPI)AfAm 146.51 Est GFR (CKD-EPI)NonAf 126.41 Random Glucose 82 Calcium 8.7 Total Bilirubin 1.1 H AST 147 H ALT 106 H Alkaline Phosphatase 75 Total Protein 6.2 L Albumin 2.7 L Active Medications Generic Name Dose Route Start Last Admin Trade Name Freq PRN Reason Stop Dose Admin Cephalexin HCl 500 mg 06/13/19 12:45 06/14/19 10:08 Keflex - PO 500 mg BID EDWARD Administration Folic Acid 1 mg 06/13/19 10:00 06/14/19 10:08 Folic Acid - PO 1 mg DAILY EDWARD Administration Heparin Sodium (Porcine) 5,000 unit 06/12/19 22:00 06/14/19 14:00 Heparin - SQ 5,000 unit TID EDWARD Administration Sodium Chloride 1,000 mls @ 125 mls/hr 06/12/19 20:30 06/14/19 12:09 Normal Saline - IV 125 mls/hr ASDIR EDWARD Administration Lorazepam 0.5 mg 06/16/19 00:00 Ativan - PO 06/18/19 00:00 Q4H PRN Symptoms of Withdrawal Lorazepam 0.5 mg 06/16/19 17:00 Ativan - PO 06/16/19 17:01 ONCE ONE Lorazepam 1 mg 06/14/19 17:00 Ativan - PO 06/15/19 11:01 1700,2300,0500,1100 EDWARD Lorazepam 0.5 mg 06/14/19 13:00 Ativan - PO ONCE PRN WITHDRAWAL(CONT SUBST) Lorazepam 0.5 mg 06/15/19 17:00 Ativan - PO 06/16/19 11:01 Q6H EDWARD Thiamine HCl 100 mg 06/13/19 10:00 06/14/19 10:08 Vitamin B1 - PO 100 mg DAILY EDWARD Administration ASSESSMENT/PLAN: Freddy Moreira is a 63 year old male with a past medical history of prostate CA s/p prostatectomy, muscular dystrophy (primarily affecting UE BL), and etoh abuse present c/o etoh withdrawal symptoms. Alcohol Withdrawal - CIWA 4 - Banana bag given - continue thiamine and folate - Librium protocol changed to Ativan due to worsening transaminitis - Bedrest and fall precautions - TSH 1.47 - negative for alcohol in Utox - Addiction medicine consulted Anemia - high reticulocyte count indicating destructive process - iron studies normal - will have outpatient workup for possible hemoglobinopathy UTI - UA positive for nitrites and leukesterase - cephalexin 500mg bid - Ucx showing lactose fermenting GNB - will need to follow up with urology outpatient due to hx of prostatectomy Transaminitis hyper bilirubinemia and elevated AST, worsening, likely in setting of Librium , no other liver toxic drugs identified, switched to Ativan protocol - RUQ US showing fatty liver disease, cholelithasis without cholecystitis Muscular dystrophy - chronic weakness - Physical therapy evaluation noted that patient will likely benefit from assistive device FEN - no IVF fluids, encourage oral hydration - Continue to monitor electrolytes and replete as necessary. hypokalemia noted and repleted. will monitor for magnesium levels - Regular diet DVT prophylaxis - Heparin 5000 units subq tid Disposition - continue to monitor on med/surg Visit type - Emergency Visit Emergency Visit: Yes ED Registration Date: 06/12/19 Care time: The patient presented to the Emergency Department on the above date and was hospitalized for further evaluation of their emergent condition. - New Patient This patient is new to me today: No - Critical Care Critical Care patient: No
--- NOTE | 2019-06-14 14:56 | PN ---
Teaching Attending Note Name of Resident: Aroldo Lucia ATTENDING PHYSICIAN STATEMENT I saw and evaluated the patient. I reviewed the resident's note and discussed the case with the resident. I agree with the resident's findings and plan as documented. SUBJECTIVE: No complaints. OBJECTIVE: Vital Signs Period Temp Pulse Resp BP Sys/Solis Pulse Ox Last 24 Hr 98.5 F-99.4 F 66-93 18-18 118-141/70-78 96-97 GENERAL: Alert, oriented, no distress HEART: S1S2, RRR LUNGS: Clear ABDOMEN: Soft, non-tender, non-distended, normal BS EXTREMITIES: No edema Laboratory Results - last 24 hr 06/14/19 06/14/19 07:45 07:45 WBC 5.6 RBC 4.65 Hgb 10.5 L Hct 32.0 L MCV 68.9 L MCH 22.5 L MCHC 32.7 RDW 19.0 H Plt Count 160 MPV 8.5 Sodium 139 Potassium 3.4 L Chloride 101 Carbon Dioxide 32 Anion Gap 6 L BUN 4.3 L Creatinine 0.4 L Est GFR (CKD-EPI)AfAm 146.51 Est GFR (CKD-EPI)NonAf 126.41 Random Glucose 82 Calcium 8.7 Total Bilirubin 1.1 H AST 147 H ALT 106 H Alkaline Phosphatase 75 Total Protein 6.2 L Albumin 2.7 L Current Medications Generic Name Dose Route Start Last Admin Trade Name Freq PRN Reason Stop Dose Admin Cephalexin HCl 500 mg 06/13/19 12:45 06/14/19 10:08 Keflex - PO 500 mg BID EDWARD Administration Folic Acid 1 mg 06/13/19 10:00 06/14/19 10:08 Folic Acid - PO 1 mg DAILY EDWARD Administration Heparin Sodium (Porcine) 5,000 unit 06/12/19 22:00 06/14/19 14:00 Heparin - SQ 5,000 unit TID EDWARD Administration Sodium Chloride 1,000 mls @ 125 mls/hr 06/12/19 20:30 06/14/19 12:09 Normal Saline - IV 125 mls/hr ASDIR EDWARD Administration Lorazepam 0.5 mg 06/16/19 00:00 Ativan - PO 06/18/19 00:00 Q4H PRN Symptoms of Withdrawal Lorazepam 0.5 mg 06/16/19 17:00 Ativan - PO 06/16/19 17:01 ONCE ONE Lorazepam 1 mg 06/14/19 17:00 Ativan - PO 06/15/19 11:01 1700,2300,0500,1100 EDWARD Lorazepam 0.5 mg 06/14/19 13:00 Ativan - PO ONCE PRN WITHDRAWAL(CONT SUBST) Lorazepam 0.5 mg 06/15/19 17:00 Ativan - PO 06/16/19 11:01 Q6H EDWARD Thiamine HCl 100 mg 06/13/19 10:00 06/14/19 10:08 Vitamin B1 - PO 100 mg DAILY EDWARD Administration ASSESSMENT AND PLAN: 63 year old male with history of prostate ca s/p prostatectomy, muscular dystrophy (primarily affecting Bilateral UEs), Alcohol Abuse sent in from [facility] for Alcohol withdrawal hallucinations and unsteady gait/falls. 1. Alcohol withdrawal, uncomplicated - Improving - Continue detox - change Librium to Ativan secondary to transaminitis - [facility] unable to provide level of care needed given his needs with muscular dystrophy 2. Alcohol dependence, continuous - Continue thiamine, folic acid 3. Hypokalemia - Replete potassium 4. Hypomagnesemia - Supplement magnesium as needed 5. Muscular dystrophy 6. Anemia, microcytic - Hemoglobin stable - Iron, ferritin are normal; TIBC low; saturation high - Outpatient follow up 7. UTI - Urine culture growing gram neg rods - Continue Keflex - Follow up urine culture 8. Prostate cancer, history of prostatectomy
[2019-06-14] MEDS: LORazepam 1 MG TABLET PO SCH ×2 (16:21→22:33)
[2019-06-14] MEDS ORDERED: LORazepam 0.5 MG TABLET PO SCH (17:00)
[2019-06-15] MEDS ORDERED: chlordiazePOXIDE 5 MG CAPSULE PO SCH (05:00)
[2019-06-15] MEDS: LORazepam 1 MG TABLET PO SCH ×2 (05:38→13:37)
[2019-06-15] MEDS: HEPARIN NA (PORCINE) 5,000 UNITS/ML 1ML VIAL SQ SCH ×3 (05:38→22:11)
[2019-06-15 07:45] LABS: HEMATOCRIT 30.5 % (35.4-49); HEMOGLOBIN 9.8 GM/dL (11.7-16.9); MCH 22.4 pg (25.7-33.7); MCHC 32.1 g/dl (32.0-35.9); MEAN CELL VOLUME 69.7 fl (80-96); MEAN PLT VOLUME 8.2 fl (7.5-11.1); PLATELET COUNT 177 K/MM3 (134-434); RBC 4.37 M/mm3 (4.00-5.60); RDW 18.9 % (11.9-15.9); WHITE BLOOD COUNT 6.9 K/mm3 (4.0-10.0)
[2019-06-15 08:21] LABS: BLOOD UREA NITROGEN 5.7 mg/dL (7-18); CALCIUM 8.2 mg/dL (8.5-10.1); CREATININE 0.4 mg/dL (0.55-1.3); MAGNESIUM 1.6 mg/dL (1.8-2.4); POTASSIUM 3.9 mmol/L (3.5-5.1)
[2019-06-15] MEDS ORDERED: MAGNESIUM SULF 50% (8.12 MEQ/2 ML-1 GM VIAL) IVPB ONE ×2 (09:17→13:21)
[2019-06-15] MEDS: FOLIC ACID 1 MG TABLET (FP) PO SCH (09:50)
[2019-06-15] MEDS: THIAMINE HCL 100 MG TABLET (FP) PO SCH (09:51)
[2019-06-15] MEDS: CEFUROXIME AXETIL 500 MG TABLET PO SCH ×2 (09:51→22:12)
[2019-06-15 12:13] LABS: ALBUMIN 2.6 g/dl (3.4-5.0); BILIRUBIN,DIRECT 0.3 mg/dL (0.0-0.2); BILIRUBIN,TOTAL 0.8 mg/dL (0.2-1)
--- NOTE | 2019-06-15 15:05 | PN ---
Physical Exam: SUBJECTIVE: Patient seen and examined at the bedside. Stated that he is doing well. Ambulating and eating well. Denies any cp, sob, abd pain, n/v/c/d, fever, chills, numbness, tingling, lightheadedness, dizziness, tremors, hallucinations. OBJECTIVE: Vital Signs Period Temp Pulse Resp BP Sys/Solis Pulse Ox Last 24 Hr 98.5 F-100 F 79-95 18-18 114-129/69-84 96-97 GENERAL: The patient is awake, alert, and fully oriented, in no acute distress. HEAD: Normal with no signs of trauma. EYES: PERRL, extraocular movements intact, mild scleral icterus, conjunctiva clear. ENT: Oropharynx clear without exudates, moist mucous membranes. NECK: Trachea midline, full range of motion, supple. LUNGS: Breath sounds equal, clear to auscultation bilaterally, no wheezes, no crackles, no accessory muscle use. HEART: Regular rate and rhythm, S1, S2 without murmur, rub. ABDOMEN: Soft, nontender, nondistended, normoactive bowel sounds, no guarding, no rebound, no masses. EXTREMITIES: 2+ pulses, warm, well-perfused, no edema. NEUROLOGICAL: Cranial nerves II through XII grossly intact. 4/5 muscle strength upper extremities bilaterally. 4/5 muscle strength lower extremities bilaterally. Sensation intact throughout to gross touch. PSYCH: Normal mood, normal affect. SKIN: Warm, dry, normal turgor, no rashes or lesions noted. Laboratory Results - last 24 hr 06/15/19 06/15/19 06:45 06:45 WBC 6.9 RBC 4.37 Hgb 9.8 L Hct 30.5 L MCV 69.7 L MCH 22.4 L MCHC 32.1 RDW 18.9 H Plt Count 177 MPV 8.2 Sodium 136 Potassium 3.9 Chloride 100 Carbon Dioxide 30 Anion Gap 5 L BUN 5.7 L Creatinine 0.4 L Est GFR (CKD-EPI)AfAm 146.51 Est GFR (CKD-EPI)NonAf 126.41 Random Glucose 82 Calcium 8.2 L Magnesium 1.6 L Total Bilirubin 0.8 Direct Bilirubin 0.3 H AST 69 H ALT 78 H Alkaline Phosphatase 74 Total Protein 6.0 L Albumin 2.6 L Active Medications Generic Name Dose Route Start Last Admin Trade Name Freq PRN Reason Stop Dose Admin Cefuroxime Axetil 500 mg 06/15/19 10:00 06/15/19 09:51 Ceftin - PO 06/19/19 22:01 500 mg BID EDWARD Administration Folic Acid 1 mg 06/13/19 10:00 06/15/19 09:50 Folic Acid - PO 1 mg DAILY EDWARD Administration Heparin Sodium (Porcine) 5,000 unit 06/12/19 22:00 06/15/19 14:10 Heparin - SQ 5,000 unit TID EDWARD Administration Lorazepam 0.5 mg 06/15/19 17:00 Ativan - PO 06/16/19 11:01 Q6H EDWARD Magnesium Oxide 800 mg 06/16/19 10:00 Mag-Ox - PO 06/21/19 09:59 DAILY EDWARD Thiamine HCl 100 mg 06/13/19 10:00 06/15/19 09:51 Vitamin B1 - PO 100 mg DAILY EDWARD Administration ASSESSMENT/PLAN: Freddy Moreira is a 63 year old male with a past medical history of prostate CA s/p prostatectomy, muscular dystrophy (primarily affecting UE BL), and etoh abuse present c/o etoh withdrawal symptoms. Alcohol Withdrawal - CIWA 1 - Banana bag given - continue thiamine and folate - Librium protocol changed to Ativan due to worsening transaminitis, last dose 11AM tomorrow - Bedrest and fall precautions - TSH 1.47 - negative for alcohol in Utox - Addiction medicine consulted - will follow up for rehab for patient Anemia - high reticulocyte count indicating destructive process - iron studies normal - will have outpatient workup for possible hemoglobinopathy UTI - UA positive for nitrites and leukesterase - cephalexin 500mg bid - Ucx showing Enterobacter Aerogenes - will need to follow up with urology outpatient due to hx of prostatectomy Transaminitis hyper bilirubinemia and elevated AST, likely in setting of Librium, no other liver toxic drugs identified, switched to Ativan protocol, improving - RUQ US showing fatty liver disease, cholelithasis without cholecystitis - will need to follow up with outpatient gastroenterology Muscular dystrophy - chronic weakness - Physical therapy evaluation noted that patient will likely benefit from assistive device - patient refusing assistive device due to hand numbness, has unsteady waddling gait Hypomagnesemia - repleted - will start on magnesium supplementation FEN - no IVF fluids, encourage oral hydration - Continue to monitor electrolytes and replete as necessary. hypomagnesemia noted and repleted. - Regular diet DVT prophylaxis - Heparin 5000 units subq tid Disposition - continue to monitor on med/surg Visit type - Emergency Visit Emergency Visit: Yes ED Registration Date: 06/12/19 Care time: The patient presented to the Emergency Department on the above date and was hospitalized for further evaluation of their emergent condition. - New Patient This patient is new to me today: No - Critical Care Critical Care patient: No
[2019-06-15] MEDS: LORazepam 0.5 MG TABLET PO SCH ×2 (17:11→22:12)
--- NOTE | 2019-06-15 17:41 | PN ---
Teaching Attending Note Name of Resident: Aroldo Lucia ATTENDING PHYSICIAN STATEMENT I saw and evaluated the patient. I reviewed the resident's note and discussed the case with the resident. I agree with the resident's findings and plan as documented with exceptions below. SUBJECTIVE: Patient seen and examined, no complaints. OBJECTIVE: Vital Signs Period Temp Pulse Resp BP Sys/Solis Pulse Ox Last 24 Hr 98.5 F-99.5 F 79-95 18-18 108-129/67-84 96-97 Intake & Output 06/12/19 06/13/19 06/14/19 06/15/19 23:59 23:59 23:59 23:59 Intake Total 8349 800 8460 200 Output Total 176 606 0970 Balance 750 -300 -500 200 Weight 155 lb 155 lb 3 oz 156 lb 9.6 oz 154 lb 11.2 oz General: sitting in bed, no acute distress chest: decreased effort, no rales or wheezing Abdomen:Soft, NT Extremities: no edema or tremors Home Medications Medication Instructions Recorded Cephalexin Monohydrate [Keflex -] 500 mg PO BID capsule 06/13/19 Cephalexin [Keflex] 500 mg PO BID #8 capsule 06/13/19 Folic Acid - 1 mg PO DAILY tablet 06/13/19 Multivitamin [Multiple Vitamins] 1 each PO DAILY #30 tablet 06/13/19 Thiamine HCl [Vitamin B1 -] 100 mg PO DAILY tablet 06/13/19 Active Medications Cefuroxime Axetil (Ceftin -) 500 mg PO BID [facility] Stop: 06/19/19 22:01 Last Admin: 06/15/19 09:51 Dose: 500 mg Folic Acid (Folic Acid -) 1 mg PO DAILY [facility] Last Admin: 06/15/19 09:50 Dose: 1 mg Heparin Sodium (Porcine) (Heparin -) 5,000 unit SQ TID [facility] Last Admin: 06/15/19 14:10 Dose: 5,000 unit Lorazepam (Ativan -) 0.5 mg PO Q6H EDWARD Stop: 06/16/19 11:01 Last Admin: 06/15/19 17:11 Dose: 0.5 mg Magnesium Oxide (Mag-Ox -) 800 mg PO DAILY [facility] Stop: 06/21/19 09:59 Thiamine HCl (Vitamin B1 -) 100 mg PO DAILY [facility] Last Admin: 06/15/19 09:51 Dose: 100 mg Laboratory Results - last 24 hr 06/15/19 06/15/19 06:45 06:45 WBC 6.9 RBC 4.37 Hgb 9.8 L Hct 30.5 L MCV 69.7 L MCH 22.4 L MCHC 32.1 RDW 18.9 H Plt Count 177 MPV 8.2 Sodium 136 Potassium 3.9 Chloride 100 Carbon Dioxide 30 Anion Gap 5 L BUN 5.7 L Creatinine 0.4 L Est GFR (CKD-EPI)AfAm 146.51 Est GFR (CKD-EPI)NonAf 126.41 Random Glucose 82 Calcium 8.2 L Magnesium 1.6 L Total Bilirubin 0.8 Direct Bilirubin 0.3 H AST 69 H ALT 78 H Alkaline Phosphatase 74 Total Protein 6.0 L Albumin 2.6 L Microbiology 06/12/19 18:40 Urine - Urine Clean Catch Urine Culture - Final Enterobacter Aerogenes ASSESSMENT AND PLAN: 63 year old male with history of prostate ca s/p prostatectomy, muscular dystrophy (primarily affecting Bilateral UEs), Alcohol Abuse sent in from [facility] for Alcohol withdrawal hallucinations and unsteady gait/falls. -Uncomplicated Alcohol withdrawal -Continuous alcohol dependence -Transaminitis, alcohol related, improved -Hypokalemia -Hypomagnesemia -Muscular dystrophy -Microcytic anemia -Lower uncomplicated Enterobacter Aerogenes -Prostate Cancer s/p prostatectomy Plan: LFts improved, no acute concerns for withdrawal Finishing ativan protocol tomorrow Detox input noted. replete K/Mg prn. Continue folic acid/thiamine. h/h stable. Outpatient monitoring Change to cefuroxime for additional 3-5 days PT eval noted dc in 24 hours with outpatient alcohol rehab.
[2019-06-15] MEDS ORDERED: LORazepam 0.5 MG TABLET PO SCH (18:00)
[2019-06-16] MEDS ORDERED: LORazepam 0.5 MG TABLET PO PRN
[2019-06-16] MEDS ORDERED: chlordiazePOXIDE 5 MG CAPSULE PO ONE (05:00)
[2019-06-16] MEDS: HEPARIN NA (PORCINE) 5,000 UNITS/ML 1ML VIAL SQ SCH ×2 (05:55→14:56)
[2019-06-16] MEDS: LORazepam 0.5 MG TABLET PO SCH ×2 (05:56→11:15)
[2019-06-16 07:31] LABS: HEMATOCRIT 28.7 % (35.4-49); HEMOGLOBIN 9.2 GM/dL (11.7-16.9); MCH 22.6 pg (25.7-33.7); MCHC 31.9 g/dl (32.0-35.9); MEAN CELL VOLUME 70.7 fl (80-96); MEAN PLT VOLUME 8.2 fl (7.5-11.1); PLATELET COUNT 182 K/MM3 (134-434); RBC 4.06 M/mm3 (4.00-5.60); RDW 19.8 % (11.9-15.9); WHITE BLOOD COUNT 4.1 K/mm3 (4.0-10.0)
[2019-06-16 07:58] LABS: ALBUMIN 2.4 g/dl (3.4-5.0); BILIRUBIN,TOTAL 0.6 mg/dL (0.2-1); BLOOD UREA NITROGEN 7.7 mg/dL (7-18); CREATININE 0.5 mg/dL (0.55-1.3); MAGNESIUM 1.8 mg/dL (1.8-2.4); POTASSIUM 3.8 mmol/L (3.5-5.1); TOT PROT 5.4 g/dl (6.4-8.2)
[2019-06-16] MEDS ORDERED: MAGNESIUM OXIDE 400 MG TABLET (FP) PO SCH (10:00)
[2019-06-16] MEDS: CEFUROXIME AXETIL 500 MG TABLET PO SCH (11:14)
[2019-06-16] MEDS: FOLIC ACID 1 MG TABLET (FP) PO SCH (11:15)
[2019-06-16] MEDS: THIAMINE HCL 100 MG TABLET (FP) PO SCH (11:15)
--- NOTE | 2019-06-16 12:33 | PN ---
Teaching Attending Note Name of Resident: Aroldo Lucia ATTENDING PHYSICIAN STATEMENT I saw and evaluated the patient. I reviewed the resident's note and discussed the case with the resident. I agree with the resident's findings and plan as documented with exceptions below. SUBJECTIVE: Patient seen and examined, no complaints. OBJECTIVE: Vital Signs Period Temp Pulse Resp BP Sys/Solis Pulse Ox Last 24 Hr 98 F-99.5 F 65-90 18-18 102-112/64-68 96 Intake & Output 06/13/19 06/14/19 06/15/19 06/16/19 23:59 23:59 23:59 23:59 Intake Total 500 1400 200 0 Output Total 800 1900 Balance -300 -500 200 0 Weight 155 lb 3 oz 156 lb 9.6 oz 154 lb 11.2 oz 155 lb 9.6 oz General: lying in bed, no acute distress Chest: CTAB, no rales or wheezing Abdomen:soft, NT Extremities: no edema Home Medications Medication Instructions Recorded Multivitamin [Multiple Vitamins] 1 each PO DAILY #30 tablet 06/13/19 Cane 1 each MC DAILY #1 each 06/16/19 Cefuroxime Axetil [Ceftin -] 500 mg PO BID #7 tablet 06/16/19 Magnesium Oxide [Mag-Ox -] 800 mg PO DAILY #4 tablet 06/16/19 Laboratory Results - last 24 hr 06/16/19 06/16/19 06:30 06:30 WBC 4.1 RBC 4.06 Hgb 9.2 L Hct 28.7 L MCV 70.7 L MCH 22.6 L MCHC 31.9 L RDW 19.8 H Plt Count 182 MPV 8.2 Sodium 137 Potassium 3.8 Chloride 103 Carbon Dioxide 31 Anion Gap 4 L BUN 7.7 Creatinine 0.5 L Est GFR (CKD-EPI)AfAm 133.67 Est GFR (CKD-EPI)NonAf 115.33 Random Glucose 84 Calcium 8.0 L Magnesium 1.8 Total Bilirubin 0.6 AST 37 ALT 58 Alkaline Phosphatase 62 Total Protein 5.4 L Albumin 2.4 L ASSESSMENT AND PLAN: 63 year old male with history of prostate ca s/p prostatectomy, muscular dystrophy (primarily affecting Bilateral UEs), Alcohol Abuse sent in from [facility] for Alcohol withdrawal hallucinations and unsteady gait/falls. -Uncomplicated Alcohol withdrawal -Continuous alcohol dependence -Transaminitis, alcohol related, improved -Hypokalemia -Hypomagnesemia -Muscular dystrophy -Microcytic anemia -Lower uncomplicated Enterobacter Aerogenes -Prostate Cancer s/p prostatectomy Plan: LFts improved, no acute concerns for withdrawal s/p ativan detox protocol. Detox input noted. h/h stable. Outpatient monitoring Change to cefuroxime for additional 4 days PT eval noted, cane on dc dc home with outpatient follow up at alcohol rehab. Discussed with patient.
[2019-06-16 14:35] VITALS: BP 105/66; PULSE 103; TEMP 98.9
--- NOTE | 2019-06-16 15:52 | DS ---
Physical Exam: SUBJECTIVE: Patient seen and examined at the bedside. Stated that he is doing well and stated he is ready to go home. Denied cp, sob, abd pain, n/v/c/d, fever , chills, tremors, anxiety, hallucinations, numbness, tingling, headaches. OBJECTIVE: Vital Signs Period Temp Pulse Resp BP Sys/Solis Pulse Ox Last 24 Hr 98 F-98.9 F 65-103 18-18 102-112/64-68 96 PHYSICAL EXAM GENERAL: The patient is awake, alert, and fully oriented, in no acute distress. HEAD: Normal with no signs of trauma. EYES: PERRL, extraocular movements intact, mild scleral icterus, conjunctiva clear. ENT: Oropharynx clear without exudates, moist mucous membranes. NECK: Trachea midline, full range of motion, supple. LUNGS: Breath sounds equal, clear to auscultation bilaterally, no wheezes, no crackles, no accessory muscle use. HEART: Regular rate and rhythm, S1, S2 without murmur, rub. ABDOMEN: Soft, nontender, nondistended, normoactive bowel sounds, no guarding, no rebound, no masses. EXTREMITIES: 2+ pulses, warm, well-perfused, no edema. NEUROLOGICAL: Cranial nerves II through XII grossly intact. 4/5 muscle strength upper extremities bilaterally. 4/5 muscle strength lower extremities bilaterally. Sensation intact throughout to gross touch. PSYCH: Normal mood, normal affect. SKIN: Warm, dry, normal turgor, no rashes or lesions noted. LABS Laboratory Results - last 24 hr 06/16/19 06/16/19 06:30 06:30 WBC 4.1 RBC 4.06 Hgb 9.2 L Hct 28.7 L MCV 70.7 L MCH 22.6 L MCHC 31.9 L RDW 19.8 H Plt Count 182 MPV 8.2 Sodium 137 Potassium 3.8 Chloride 103 Carbon Dioxide 31 Anion Gap 4 L BUN 7.7 Creatinine 0.5 L Est GFR (CKD-EPI)AfAm 133.67 Est GFR (CKD-EPI)NonAf 115.33 Random Glucose 84 Calcium 8.0 L Magnesium 1.8 Total Bilirubin 0.6 AST 37 ALT 58 Alkaline Phosphatase 62 Total Protein 5.4 L Albumin 2.4 L HOSPITAL COURSE: Freddy Moreira is a 63 year old male with a past medical history of prostate CA s/p prostatectomy, muscular dystrophy (primarily affecting UE BL), and etoh abuse present c/o etoh withdrawal symptoms. Patient was started on Librium protocol. He needed to be switched to Ativan protocol because of rising LFTs and succesfully completed an Ativan taper. Was given banana bag, thiamine, folate. Did not have any seizures, delirium tremens while admitted and CIWA score improved during admission. Patient was found with UTI growing Enterobacter Aerogenes and will complete Ceftin 500mg bid outpatient. Due to history of prostatectomy he will need to follow up with urology outpatient. Patient had anemia and high reticulocyte indicating a destructive process, iron studies normal and will need to follow up with hematology outpatient. Transaminitis, likely due to librium resolved after switching to Ativan. Was seen by physical therapy for muscular dystophy and performed, and was advised for an assistive device and was prescribed a cane for use at home. For tranasminitis, patient had U/S done showing fatty liver disease, cholelithasis without cholecystitis. Was advised to follow up with gastroenterology. Patient was given resources for alcohol addiction rehab. Patient was advised to follow up with primary care, hematology, urology, gastroenterology. Was continued on Ceftin, magnesium oxide, MVI, and given cane. Patient was advised of the plan, was in agreement, and reiterated the plan. Patient was discharged in stable medical condition. Date of Admission:06/12/19 Date of Discharge: 06/16/19 Minutes to complete discharge: 35 Discharge Summary Problems reviewed: Yes Reason For Visit: ALCOHOL WITHDRAWAL SYNDROME Condition: Stable - Instructions Diet, Activity, Other Instructions: You were admitted because you were having alcohol withdrawal symptoms. You were started on Librium for your withdrawal symptoms. You were given multivitamin, thiamine, folate to replenish your vitamins in your body. An analysis of your urine showed that you have an infection. You were started on antibiotics which you will continue to take when you are discharged. You should follow up with your urologist as well. You had an elevation of your liver enzymes and had an ultrasound of your liver which showed an increase of fat in the liver and you had gallstones in your gallbladder. You should follow up with a nurse ortho (stomach, liver, intestine doctor) when you leave the facility. You had an anemia (low blood count) when your blood cells were checked. We recommend that you follow up with a telecommunications line installer (blood doctor) after leaving the facility. MEDICATIONS START to take Ceftin 500mg twice a day for 4 more days. START to take a Multi-vitamin every day. START to take Magnesium Oxide 800mg for 2 more days. Continue to take all of your home medications as prescribed. REFERRALS Please see your primary care doctor, Dr. Delphine Reinoso, within 1 week of leaving the facility. Please see your urologist, within 1 week of leaving the facility. If you do not have one, information for Dr. Ramon Rocha was provided. Please see the nurse ortho, Dr. Florian Diaz, within 1 week of leaving the facility. Please see the telecommunications line installer (blood doctor), Dr. Arya Arauz, within 1 week of leaving the facility. You will need outpatient follow up with the telecommunications line installer for your anemia. SPECIAL INSTRUCTIONS Please cease using alcohol as it will greatly decrease any disease progression of your liver, heart, and other vital organs. Eat meals adequate in protein, fats, vitamins, and minerals. We recommend that you enter a rehabilitation program for your alcohol use disorder. We recommend that use a cane in order to help you walk to prevent any falls and injuries to yourself. If you have any symptoms of fever, chills, shakes, hallucinations, chest pain, shortness of breath, nausea, vomiting, please call 911 or go to your nearest emergency room. Referrals: delphine reinoso [Other] - 1 Week Daniele Diaz DO [Staff Physician] - 1 Week Ramon Tejada MD [Staff Physician] - 1 Week Arya Arauz MD [Staff Physician] - Disposition: HOME - Home Medications Comprehensive Discharge Medication List: Ambulatory Orders Multivitamin [Multiple Vitamins] 1 each PO DAILY #30 tablet 06/13/19 Cane 1 each MC DAILY #1 each 06/16/19 Cefuroxime Axetil [Ceftin -] 500 mg PO BID #7 tablet 06/16/19 Magnesium Oxide [Mag-Ox -] 800 mg PO DAILY #4 tablet 06/16/19 Problem List - Problems (1) UTI (urinary tract infection) Code(s): N39.0 - URINARY TRACT INFECTION, SITE NOT SPECIFIED (2) Alcohol abuse Code(s): F10.10 - ALCOHOL ABUSE, UNCOMPLICATED (3) Alcohol withdrawal Code(s): F10.239 - ALCOHOL DEPENDENCE WITH WITHDRAWAL, UNSPECIFIED Qualifiers: Complication of substance-induced condition: with perceptual disturbance Qualified Code(s): F10.232 - Alcohol dependence with withdrawal with perceptual disturbance This patient is new to me today: No Emergency Visit: Yes ED Registration Date: 06/12/19 Care time: The patient presented to the Emergency Department on the above date and was hospitalized for further evaluation of their emergent condition. Critical Care patient: No - Discharge Referral Referred to [facility] Med [facility] No
[2019-06-16] MEDS ORDERED: LORazepam 0.5 MG TABLET PO ONE (17:00)
== END 2019-06-16 15:22 | disposition home or self-care (01) | DRG 775 ==
LOC: JER 16:06 → JERBED 19:14 → J7W 06-13 11:10
PROVIDERS: ADMIT Internal Medicine; ATTEND Hospitalist
PROC: HZ2ZZZZ Detoxification Services for Substance Abuse Treatment (ICD-10-PCS; principal; 2019-06-12)
DX: F10.239 Alcohol dependence with withdrawal, unspecified (principal); E83.42 Hypomagnesemia; E87.6 Hypokalemia; N39.0 Urinary tract infection, site not specified; D50.9 Iron deficiency anemia, unspecified; K70.10 Alcoholic hepatitis without ascites; K80.20 Calculus of gallbladder without cholecystitis without obstruction; R44.1 Visual hallucinations; R44.0 Auditory hallucinations; F10.232 Alcohol dependence with withdrawal with perceptual disturbance; G71.00 Muscular dystrophy, unspecified; R74.0 Nonspecific elevation of levels of transaminase and lactic acid dehydrogenase [LDH]; Z85.46 Personal history of malignant neoplasm of prostate; K76.0 Fatty (change of) liver, not elsewhere classified
CPT/HCPCS: 36415; 70450-TC; 71045-TC-FY; 76705-TC; 80048; 80053; 80076; 80307; 81003; 82550; 82553; 82728; 82977; 83540; 83550; 83735; 84100; 84443; 84484; 85025; 85027; 85044; 85610; 85730; 87086; 87186; 93005; 93010; 97116-GP; 97161-GP; 99285-25; J1644; J7030